=== PATIENT | female | born 1955 | race Caucasian/White ===

== ENCOUNTER 2016-02-16 13:09 | Day surgery (SDC) | payer OTHER ==
[~2016-02-16] VITALS: Ht 165.1 cm; Wt 61.8 kg
[~2016-02-16 13:09] MED LIST: ADULT LOW DOSE81 M1 PO; AMITRIPTYLINE H10 MG PO; AMLODIPINE BESY10 MG PO; ASPIRIN81 M2 PO; ATROVENT 00.5 MG/2.5 IH; AZITHROMYCIN250 MG1 PO; BACLOFEN10 MG PO; BUPROPION XL300 MG PO; CLONAZEPAM0.5 MG PO; CLONAZEPAM1 MG PO; DIVALPROEX SOD125 MG PO; DIVALPROEX SOD500 MG PO; EFFEXOR XR37.5 MG PO; FLEXERIL10 MG PO; HYDROCODON-ACE1 EAC9 PO; HYDROXYZINE PAM25 MG PO; IPRATROPIU0.2 MG/1 M IH; KLONOPIN1 MG PO; LEVO-T125 MCG PO; LEVOTHYROXINE125 MCG PO; LEVOTHYROXINE137 MCG PO; LIDOCAINE700 MG TD; LIDODERM 5% P1 PATCH TD; LISINOPRIL10 MG PO; LISINOPRIL5 MG PO; LYRICA75 MG PO; MEDROL DOSEPAK4 MG PO; MELOXICAM15 MG PO; METAXALONE800 MG PO; MOBIC15 MG PO; MOTRIN600 MG PO; NAPROSYN500 MG PO; NAPROXEN500 MG PO; NEXIUM40 MG PO; NICOTINE PATCH1 EAC2 TD; NORCO 5/3251 TABLET PO; PERCOCET 5/31 TABLET PO; PRAVASTATIN SOD40 MG PO; PRAVASTATIN SOD80 MG PO; PREDNISONE10 MG PO; PREDNISONE20 MG PO; PROVENTIL,2.5 MG/0.5 AEROSOL; QUETIAPINE FUM200 MG PO; REGLAN10 MG PO; SEROQUEL XR300 MG PO; SEROQUEL XR400 MG PO; SPIRIVA RESPIMAT4 GM IH; SYNTHROID125 MCG PO; TIZANIDINE HCL4 MG PO; TRAZODONE HCL50 MG PO; ULTRAM50 MG PO; VENLAFAXINE HC150 M1 PO; VENLAFAXINE HCL75 M3 PO; VENLAFAXINE HCL75 MG PO; VENTOLIN HFA18 GM IH; WELLBUTRIN XL300 MG PO; ZANAFLEX4 M1 PO
== END 2016-02-16 14:55 | disposition home or self-care (01) ==
LOC: PAIN 13:09 → SDC 14:00 → PAIN 14:00
PROC: 3E0S33Z Introduction of Anti-inflammatory into Epidural Space, Percutaneous Approach (ICD-10-PCS; principal; 2016-02-16)
DX: M54.16 Radiculopathy, lumbar region (principal); F41.9 Anxiety disorder, unspecified; M51.36 Other intervertebral disc degeneration, lumbar region; M43.10 Spondylolisthesis, site unspecified; F17.200 Nicotine dependence, unspecified, uncomplicated; J45.909 Unspecified asthma, uncomplicated; F31.81 Bipolar II disorder; E07.9 Disorder of thyroid, unspecified; Z79.82 Long term (current) use of aspirin; Z91.040 Latex allergy status; Z88.5 Allergy status to narcotic agent
CPT/HCPCS: J1100; J2250; J3010

== ENCOUNTER 2016-03-17 07:39 | Day surgery (SDC) | payer OTHER ==
[~2016-03-17] VITALS: Ht 165.1 cm; Wt 59.0 kg
[~2016-03-17 07:39] MED LIST changes: +CALCIUM 500 MG1 EACH PO; +DEPAKOTE250 MG PO; +ENDOCET 5-3251 EACH PO; +PRAVACHOL40 MG PO; +VENLAFAXINE HCL75 M1 PO; +ZESTRIL5 MG PO
== END 2016-03-17 11:45 | disposition home or self-care (01) ==
LOC: PAIN 07:39 → SDC 08:00 → PAIN 11:45
DX: M54.16 Radiculopathy, lumbar region (principal); F41.1 Generalized anxiety disorder; M51.36 Other intervertebral disc degeneration, lumbar region; G40.909 Epilepsy, unspecified, not intractable, without status epilepticus; F31.81 Bipolar II disorder; J45.909 Unspecified asthma, uncomplicated; M19.90 Unspecified osteoarthritis, unspecified site; E07.9 Disorder of thyroid, unspecified
CPT/HCPCS: J1100; J2250; J3010

== ENCOUNTER 2016-03-22 17:48 | Emergency (ER) | payer OTHER ==
[~2016-03-22] VITALS: Ht 167.6 cm; Wt 61.3 kg
[2016-03-22 20:56] LABS: CHLORIDE 96 mEq/L (99-109); POTASSIUM 2.7 mEq/L (3.7-5.4); SODIUM 138 mEq/L (136-147)
[2016-03-22 20:57] LABS: GLUCOSE 125 mg/dL (70-99)
[2016-03-22 20:59] LABS: ANION GAP 12 MEQ/L (2-14)
[2016-03-22 21:01] LABS: GFR ESTIMATE (CALCULATED) > 59 mL/min/
[2016-03-22 21:02] LABS: UREA NITROGEN (BUN) 24 mg/dL (9-23)
[2016-03-22 21:04] LABS: CREATINE KINASE 18 IU/L (1-294)
[2016-03-22 22:27] LABS: ADD MIUA? YES; BILIRUBIN LARGE; BLOOD NEGATIVE; COLOR AMBER ((YELLOW)); GLUCOSE (STRIP) NEGATIVE; KETONES NEGATIVE; LEUKOCYTES TRACE; NITRITE NEGATIVE; PROTEIN (STRIP) TRACE
[2016-03-22 22:29] LABS: CASTS PRESENT /LPF; HYALINE CASTS 40-50 /LPF; RED BLOOD CELLS 0-5 /HPF (0-5)
[2016-03-22 22:30] LABS: BACTERIA RARE /HPF; CRYSTALS NONE SEEN; EPITHELIAL CELLS RARE /HPF; ICTOTEST NEGATIVE; MUCUS 2+ /LPF
[2016-03-23] MEDS ORDERED: K-DUR10 MEQ PO (00:21)
[2016-03-23] MEDS ORDERED: LIDODERM 5% P1 PATCH TD (00:21)
[2016-03-23] MEDS ORDERED: MOTRIN600 MG PO (00:29)
[2016-03-23] MEDS ORDERED: VALIUM2 MG PO (00:29)
[2016-03-23] MEDS ORDERED: ULTRACET1 TABLET PO (00:29)
[2016-03-23 00:42] VITALS: BP 104/64
== END 2016-03-23 00:50 | disposition home or self-care (01) ==
LOC: EME 17:48
PROVIDERS: Physician Assistant
DX: M54.31 Sciatica, right side (principal); E87.6 Hypokalemia; E78.5 Hyperlipidemia, unspecified; K21.9 Gastro-esophageal reflux disease without esophagitis; R56.9 Unspecified convulsions; E03.9 Hypothyroidism, unspecified; Z87.442 Personal history of urinary calculi; Z87.891 Personal history of nicotine dependence
CPT/HCPCS: 72100; 72170; 80048; 81003; 82550; 93005; 99281; 99285; J3010; J3480

== ENCOUNTER 2016-06-10 01:09 | Emergency (ER) | payer OTHER ==
[~2016-06-10] VITALS: Ht 162.6 cm; Wt 62.8 kg
[~2016-06-10 01:09] MED LIST changes: +K-DUR10 MEQ PO; +ULTRACET1 TABLET PO; +VALIUM2 MG PO
[2016-06-10] MEDS ORDERED: CYMBALTA60 MG PO (02:47)
[2016-06-10 02:56] LABS: HEMATOCRIT 35.9 % (36.0-46.0); MCH 32.1 PG (29.0-34.0); MCHC 34.3 G/DL (30.0-36.0); MCV 93.7 FL (83-99); MEAN PLAT.VOLUME 9.4 uM^3 (9.5-12.4); PLATELET COUNT 135 K/uL (156-360); RBC DIS.WIDTH-SD 41.9 % (39-53); RED BLOOD COUNT 3.83 M/uL (3.80-5.20)
[2016-06-10 03:55] LABS: TROP-I INTERPRETATION NEGATIVE; TROPONIN-I 0.11 ng/mL (0.0-0.30)
[2016-06-10 04:08] LABS: ANION GAP 11 MEQ/L (2-14); CHLORIDE 104 mEq/L (99-109); GFR ESTIMATE (CALCULATED) > 59 mL/min/; GLUCOSE 107 mg/dL (70-99); POTASSIUM 3.8 mEq/L (3.7-5.4); SODIUM 139 mEq/L (136-147); UREA NITROGEN (BUN) 19 mg/dL (9-23)
[2016-06-10 05:52] LABS: SAMPLE HEMOLYSIS CHECK 0; SAMPLE ICTERIC CHECK 0; SAMPLE LIPEMIA CHECK 0
[2016-06-10 06:18] LABS: ADD MIUA? NO; BILIRUBIN NEGATIVE; BLOOD NEGATIVE; COLOR YELLOW ((YELLOW)); GLUCOSE (STRIP) NEGATIVE; KETONES NEGATIVE; LEUKOCYTES NEGATIVE; NITRITE NEGATIVE; PROTEIN (STRIP) NEGATIVE; UCUL ADDED? NO; UROBILINOGEN 0.2 MG/DL (0.2-1.0)
[2016-06-10] MEDS ORDERED: NORCO 5/3251 TABLET PO (06:53)
[2016-06-10 06:56] VITALS: BP 135/74
[2016-06-11] MEDS ORDERED: FLEXERIL10 MG PO (17:58)
[2016-06-11] MEDS ORDERED: NAPROSYN500 MG PO (17:58)
== END 2016-06-10 07:00 | disposition home or self-care (01) ==
LOC: EME 01:09
PROVIDERS: Emergency Medicine
DX: M54.31 Sciatica, right side (principal); G89.29 Other chronic pain; I10 Essential (primary) hypertension; M47.896 Other spondylosis, lumbar region; M79.605 Pain in left leg; E78.5 Hyperlipidemia, unspecified; E03.9 Hypothyroidism, unspecified; Z79.82 Long term (current) use of aspirin; Z87.891 Personal history of nicotine dependence
CPT/HCPCS: 72131; 74177; 80048; 80164; 81003; 84484; 85027; 93005; 99281; 99284; J0360; J1170; J2270

== ENCOUNTER 2016-06-11 17:39 | Emergency (ER) | payer OTHER ==
[~2016-06-11] VITALS: Ht 165.1 cm; Wt 65.1 kg
[~2016-06-11 17:39] MED LIST changes: +CYMBALTA60 MG PO
[2016-06-11] MEDS ORDERED: FLEXERIL10 MG PO (17:58)
[2016-06-11] MEDS ORDERED: NAPROSYN500 MG PO (17:58)
[2016-06-11 18:11] VITALS: BP 159/87
== END 2016-06-11 18:13 | disposition home or self-care (01) ==
LOC: EME 17:39
DX: M54.31 Sciatica, right side (principal)
CPT/HCPCS: 99281; 99283; J1100

== ENCOUNTER 2016-06-28 11:38 | Emergency (ER) | payer OTHER ==
[~2016-06-28] VITALS: Ht 162.6 cm; Wt 58.6 kg
[2016-06-28 13:09] LABS: EOSINOPHIL (%) 0.5 % (0-5); EOSINOPHIL COUNT 0.1 K/uL (0-0.3); HEMATOCRIT 32.1 % (36.0-46.0); IMMATURE GRANULOCYTE (%) 0.5 % (0.0-0.7); IMMATURE GRANULOCYTE COUNT 0.1 K/uL; INSTRUMENT ABS NEUTROPHIL CT 9.3 K/uL; LYMPHOCYTE COUNT 2.4 K/uL (1.0-2.8); MCH 32.9 PG (29.0-34.0); MCHC 35.5 G/DL (30.0-36.0); MCV 92.8 FL (83-99); MEAN PLAT.VOLUME 10.7 uM^3 (9.5-12.4); MONOCYTE (%) 10.6 % (3-12); MONOCYTE COUNT 1.4 K/uL (0-0.8); NEUTROPHIL (%) 70.1 % (45-76); NEUTROPHIL COUNT 9.3 K/uL (1.8-6.4); PLATELET COUNT 96 K/uL (156-360); RBC DIS.WIDTH-CV 12.1 % (11.8-14.6); RBC DIS.WIDTH-SD 40.7 % (39-53); RED BLOOD COUNT 3.46 M/uL (3.80-5.20); WHITE BLOOD COUNT 13.3 K/uL (4.1-10.2)
[2016-06-28 13:28] LABS: ADD MIUA? YES; BILIRUBIN MODERATE; BLOOD SMALL; COLOR AMBER ((YELLOW)); GLUCOSE (STRIP) NEGATIVE; KETONES 5; LEUKOCYTES NEGATIVE; NITRITE NEGATIVE; PROTEIN (STRIP) 30; SPECIFIC GRAVITY 1.025 (1.000-1.030)
[2016-06-28 13:30] LABS: CHLORIDE 94 mEq/L (99-109); POTASSIUM 3.2 mEq/L (3.7-5.4); SODIUM 137 mEq/L (136-147)
[2016-06-28 13:31] LABS: GLUCOSE 93 mg/dL (70-99)
[2016-06-28 13:33] LABS: ANION GAP 12 MEQ/L (2-14)
[2016-06-28 13:34] LABS: BACTERIA RARE /HPF; CALCIUM OXALATE CRYSTALS 2+ /HPF; EPITHELIAL CELLS RARE /HPF; MUCUS TRACE /LPF; RED BLOOD CELLS 0-5 /HPF (0-5); WHITE BLOOD CELLS 0-5 /HPF (0-5)
[2016-06-28 13:35] LABS: GFR ESTIMATE (CALCULATED) 53 mL/min/; SERUM ETHYL ALCOHOL < 10 mg/dL
[2016-06-28 13:35] LABS: AMPHETAMINE NEGATIVE (500 ng/mL); BENZODIAZEPINES NEGATIVE (150 ng/mL); COCAINE NEGATIVE (150 ng/mL); METHAMPHETAMINE NEGATIVE (500 ng/mL); OPIATES (MORPHINE) PRESUMPTIVE POSITIVE (100 ng/mL); PHENCYCLIDINE NEGATIVE (25 ng/mL); THC CANNABINOIDS NEGATIVE (50 ng/mL); TRICYCLIC ANTIDEPRESSANTS PRESUMPTIVE POSITIVE (300 ng/mL)
[2016-06-28 13:36] LABS: UREA NITROGEN (BUN) 46 mg/dL (9-23)
[2016-06-28 13:36] LABS: BARBITURATES NEGATIVE (200 ng/mL); INTERNAL CONTROLS VALID? YES; METHADONE NEGATIVE (200 ng/mL); OXYCODONE NEGATIVE (100 ng/mL); PROPOXYPHENE NEGATIVE (300 ng/mL)
[2016-06-28 13:37] LABS: ADD MEDTOX COMMENT Y
[2016-06-28 14:01] LABS: ICTOTEST POSITIVE
[2016-06-28 14:58] LABS: ALKALINE PHOSPHATASE 67 IU/L (3-129)
[2016-06-28 15:00] LABS: DIRECT BILIRUBIN 0.4 mg/dL (0.0-0.3)
[2016-06-28 17:41] VITALS: BP 120/81
== END 2016-06-28 17:47 | disposition home or self-care (01) ==
LOC: EME 11:38
PROVIDERS: Emergency Medicine
DX: E86.0 Dehydration (principal); E03.9 Hypothyroidism, unspecified; E78.5 Hyperlipidemia, unspecified; Z79.82 Long term (current) use of aspirin; Z87.891 Personal history of nicotine dependence
CPT/HCPCS: 80048; 80076; 81003; 84999; 85025; 99281; 99284; G0480; J7030

== ENCOUNTER 2016-06-30 17:54 | Emergency (ER) | payer OTHER ==
[~2016-06-30] VITALS: Ht 162.6 cm; Wt 59.1 kg
[2016-06-30 19:55] LABS: HEMATOCRIT 29.5 % (36.0-46.0); MCH 32.7 PG (29.0-34.0); MCHC 35.9 G/DL (30.0-36.0); MEAN PLAT.VOLUME 8.8 uM^3 (9.5-12.4); PLATELET COUNT 86 K/uL (156-360); RBC DIS.WIDTH-CV 12.1 % (11.8-14.6); RBC DIS.WIDTH-SD 39.6 % (39-53); RED BLOOD COUNT 3.24 M/uL (3.80-5.20); WHITE BLOOD COUNT 6.2 K/uL (4.1-10.2)
[2016-06-30 20:02] LABS: CHLORIDE 98 mEq/L (99-109); POTASSIUM 3.7 mEq/L (3.7-5.4); SODIUM 136 mEq/L (136-147)
[2016-06-30 20:04] LABS: GLUCOSE 97 mg/dL (70-99)
[2016-06-30 20:05] LABS: ANION GAP 10 MEQ/L (2-14)
[2016-06-30 20:08] LABS: GFR ESTIMATE (CALCULATED) > 59 mL/min/
[2016-06-30 20:09] LABS: UREA NITROGEN (BUN) 20 mg/dL (9-23)
[2016-06-30 20:17] LABS: TROP-I INTERPRETATION NEGATIVE; TROPONIN-I 0.02 ng/mL (0.0-0.30)
[2016-06-30 21:49] LABS: ALKALINE PHOSPHATASE 76 IU/L (3-129)
[2016-06-30 21:50] LABS: ADD MIUA? YES; BILIRUBIN SMALL; BLOOD SMALL; COLOR YELLOW ((YELLOW)); GLUCOSE (STRIP) NEGATIVE; KETONES 5; LEUKOCYTES TRACE; NITRITE NEGATIVE; PROTEIN (STRIP) 30; SPECIFIC GRAVITY 1.017 (1.000-1.030)
[2016-06-30 21:51] LABS: DIRECT BILIRUBIN 0.5 mg/dL (0.0-0.3)
[2016-06-30 21:52] LABS: LIPASE 85 U/L (1.0-51.0)
[2016-06-30 22:18] LABS: EPITHELIAL CELLS 1+ /HPF; RED BLOOD CELLS 0-5 /HPF (0-5); WHITE BLOOD CELLS 0-5 /HPF (0-5)
[2016-06-30 22:19] LABS: BACTERIA 2+ /HPF; MUCUS NONE SEEN /LPF
[2016-06-30] MEDS ORDERED: KEFLEX500 MG PO (22:22)
[2016-06-30 23:05] VITALS: BP 138/76
== END 2016-06-30 23:06 | disposition home or self-care (01) ==
LOC: EME 17:54
PROVIDERS: Emergency Medicine
DX: R45.1 Restlessness and agitation (principal); N39.0 Urinary tract infection, site not specified; F31.81 Bipolar II disorder; Z87.891 Personal history of nicotine dependence; Z91.040 Latex allergy status; Z87.442 Personal history of urinary calculi; G43.909 Migraine, unspecified, not intractable, without status migrainosus; E78.5 Hyperlipidemia, unspecified; Z88.1 Allergy status to other antibiotic agents; Z88.5 Allergy status to narcotic agent
CPT/HCPCS: 70450; 80048; 80076; 81003; 83690; 84484; 85027; 87086; 90839; 99281; 99284

== ENCOUNTER 2016-07-23 02:27 | Emergency (ER) | payer OTHER ==
[~2016-07-23] VITALS: Ht 154.9 cm; Wt 56.5 kg
[~2016-07-23 02:27] MED LIST changes: +KEFLEX500 MG PO
[2016-07-23 02:28] VITALS: BP 145/80
== END 2016-07-23 03:16 | disposition left against medical advice (07) ==
LOC: EME 02:27
DX: M54.5 Low back pain (principal); Z53.21 Procedure and treatment not carried out due to patient leaving prior to being seen by health care provider

== ENCOUNTER 2016-08-16 16:23 | Emergency (ER) | payer OTHER ==
[~2016-08-16] VITALS: Ht 165.1 cm; Wt 54.5 kg
[2016-08-16 17:05] VITALS: BP 131/74
[2016-08-16 17:23] LABS: HEMATOCRIT 34.2 % (36.0-46.0); MCH 31.8 PG (29.0-34.0); MCHC 34.2 G/DL (30.0-36.0); MCV 92.9 FL (83-99); MEAN PLAT.VOLUME 8.6 uM^3 (9.5-12.4); PLATELET COUNT 91 K/uL (156-360); RBC DIS.WIDTH-CV 13.3 % (11.8-14.6); RBC DIS.WIDTH-SD 45.1 % (39-53); RED BLOOD COUNT 3.68 M/uL (3.80-5.20); WHITE BLOOD COUNT 4.9 K/uL (4.1-10.2)
[2016-08-16 17:28] LABS: ADD MIUA? YES; BILIRUBIN NEGATIVE; BLOOD SMALL; COLOR YELLOW ((YELLOW)); GLUCOSE (STRIP) NEGATIVE; KETONES NEGATIVE; LEUKOCYTES NEGATIVE; NITRITE NEGATIVE; PROTEIN (STRIP) NEGATIVE
[2016-08-16 17:31] LABS: CHLORIDE 100 mEq/L (99-109); SODIUM 138 mEq/L (136-147)
[2016-08-16 17:33] LABS: GLUCOSE 99 mg/dL (70-99)
[2016-08-16 17:33] LABS: BACTERIA RARE /HPF; EPITHELIAL CELLS RARE /HPF; MUCUS TRACE /LPF; RED BLOOD CELLS 0-5 /HPF (0-5); UCUL ADDED? NO; WHITE BLOOD CELLS 0-5 /HPF (0-5)
[2016-08-16 17:34] LABS: ANION GAP 7 MEQ/L (2-14)
[2016-08-16 17:37] LABS: GFR ESTIMATE (CALCULATED) > 59 mL/min/; UREA NITROGEN (BUN) 18 mg/dL (9-23)
[2016-08-16 17:39] LABS: CREATINE KINASE 72 IU/L (1-294); TOTAL CK 72 IU/L (1-294)
[2016-08-16 17:43] LABS: TROP-I INTERPRETATION NEGATIVE; TROPONIN-I < 0.01 ng/mL (0.0-0.30)
[2016-08-16 17:45] LABS: CK-MB 3.8 ng/mL (0.0-4.9)
[2016-08-16 18:11] LABS: TOTAL BILIRUBIN 0.9 mg/dL (0.0-1.0)
[2016-08-16 18:12] LABS: ALKALINE PHOSPHATASE 112 IU/L (3-129)
[2016-08-16 18:14] LABS: DIRECT BILIRUBIN 0.4 mg/dL (0.0-0.3)
[2016-08-16 18:16] LABS: LIPASE 16 U/L (1.0-51.0)
[2016-08-16] MEDS ORDERED: NAPROSYN500 MG PO (19:35)
[2016-08-16] MEDS ORDERED: MEDROL DOSEPAK4 MG PO (19:37)
== END 2016-08-16 20:21 | disposition home or self-care (01) ==
LOC: EME 16:23
PROVIDERS: Emergency Medicine
DX: M54.30 Sciatica, unspecified side (principal); R53.1 Weakness; G89.29 Other chronic pain; Z87.891 Personal history of nicotine dependence
CPT/HCPCS: 71020; 80048; 80076; 81003; 82550; 82553; 83690; 84484; 85027; 87086; 99281; 99283; J7512

== ENCOUNTER 2016-08-31 17:29 | Inpatient (IN) | payer OTHER ==
[~2016-08-31] VITALS: Ht 162.6 cm; Wt 58.4 kg
[2016-08-31 18:39] LABS: HEMATOCRIT 34.1 % (36.0-46.0); MCH 32.5 PG (29.0-34.0); MCHC 34.9 G/DL (30.0-36.0); PLATELET COUNT 96 K/uL (156-360); RBC DIS.WIDTH-CV 13.3 % (11.8-14.6); RBC DIS.WIDTH-SD 45.3 % (39-53); RED BLOOD COUNT 3.66 M/uL (3.80-5.20); WHITE BLOOD COUNT 17.3 K/uL (4.1-10.2)
[2016-08-31 18:42] LABS: MCV 93.2 FL (83-99)
[2016-08-31 18:54] LABS: CHLORIDE 99 mEq/L (99-109); SODIUM 137 mEq/L (136-147)
[2016-08-31 18:57] LABS: ANION GAP 14 MEQ/L (2-14); GLUCOSE 139 mg/dL (70-99); POTASSIUM 4.8 mEq/L (3.7-5.4)
[2016-08-31 18:59] LABS: GFR ESTIMATE (CALCULATED) 30 mL/min/
[2016-08-31 19:36] LABS: SERUM ETHYL ALCOHOL < 10 mg/dL
[2016-08-31 19:38] LABS: UREA NITROGEN (BUN) 38 mg/dL (9-23)
[2016-08-31 19:39] LABS: SALICYLATE < 5.0 MG/DL (15-30)
[2016-08-31 19:46] LABS: TROP-I INTERPRETATION NEGATIVE; TROPONIN-I < 0.01 ng/mL (0.0-0.30)
[2016-08-31 20:00] LABS: CREATINE KINASE 2860 IU/L (1-294)
[2016-08-31 23:10] LABS: BASE EXCESS 5.4 mEq/L (-3 to +3); BICARBONATE 28.9 mEq/L (22-26); CARBOXY HGB 2.6 % (0-5); METHEMOGLOBIN 1.3 % (0-1.5); PCO2 37 mm Hg (35-45); PO2 62 mm Hg (80-100)
[2016-08-31 23:11] LABS: COMMENTS - BLOOD GASES C+; MODE ROOM AIR; SITE LB
[2016-08-31] MEDS ORDERED: ADULT LOW DOSE81 M1 PO (23:35)
[2016-08-31] MEDS ORDERED: SYNTHROID150 MCG PO (23:35)
[2016-08-31] MEDS ORDERED: NAPROXEN500 MG PO (23:36)
[2016-08-31] MEDS ORDERED: VENLAFAXINE HCL75 M3 PO (23:36)
[2016-08-31] MEDS ORDERED: TRAZODONE HCL50 MG PO (23:36)
[2016-08-31] MEDS ORDERED: HYDROXYZINE HCL25 MG PO (23:37)
[2016-08-31] MEDS ORDERED: DILAUDID4 MG PO (23:37)
[2016-08-31] MEDS ORDERED: GABAPENTIN600 MG PO (23:37)
[2016-09-01 06:00] LABS: HEMATOCRIT 30.2 % (36.0-46.0); MCH 32.1 PG (29.0-34.0); MCHC 33.8 G/DL (30.0-36.0); NRBC (%) 0.1 /100 WBC (0-0); PLATELET COUNT 82 K/uL (156-360); RBC DIS.WIDTH-CV 13.4 % (11.8-14.6); RBC DIS.WIDTH-SD 46.5 % (39-53); RED BLOOD COUNT 3.18 M/uL (3.80-5.20); WHITE BLOOD COUNT 13.9 K/uL (4.1-10.2)
[2016-09-01 06:11] LABS: CHLORIDE 102 mEq/L (99-109); POTASSIUM 4.1 mEq/L (3.7-5.4); SODIUM 139 mEq/L (136-147)
[2016-09-01 06:14] LABS: GLUCOSE 81 mg/dL (70-99)
[2016-09-01 06:15] LABS: ANION GAP 8 MEQ/L (2-14); TOTAL BILIRUBIN 0.5 mg/dL (0.0-1.0)
[2016-09-01 06:17] LABS: ADD MIUA? YES; BILIRUBIN MODERATE; BLOOD MODERATE; COLOR AMBER ((YELLOW)); GLUCOSE (STRIP) NEGATIVE; KETONES NEGATIVE; LEUKOCYTES NEGATIVE; NITRITE NEGATIVE; PROTEIN (STRIP) 30
[2016-09-01 06:17] LABS: ALKALINE PHOSPHATASE 92 IU/L (3-129); GFR ESTIMATE (CALCULATED) 44 mL/min/
[2016-09-01 06:18] LABS: UREA NITROGEN (BUN) 43 mg/dL (9-23)
[2016-09-01 06:23] LABS: BACTERIA NONE SEEN /HPF; EPITHELIAL CELLS NONE SEEN /HPF; MUCUS TRACE /LPF; RED BLOOD CELLS 0-5 /HPF (0-5); UCUL ADDED? NO; WHITE BLOOD CELLS 0-5 /HPF (0-5)
[2016-09-01 06:30] LABS: ADD MEDTOX COMMENT Y; AMPHETAMINE NEGATIVE (500 ng/mL); BARBITURATES NEGATIVE (200 ng/mL); BENZODIAZEPINES NEGATIVE (150 ng/mL); COCAINE NEGATIVE (150 ng/mL); INTERNAL CONTROLS VALID? YES; METHADONE NEGATIVE (200 ng/mL); METHAMPHETAMINE NEGATIVE (500 ng/mL); OPIATES (MORPHINE) PRESUMPTIVE POSITIVE (100 ng/mL); OXYCODONE NEGATIVE (100 ng/mL); PHENCYCLIDINE NEGATIVE (25 ng/mL); PROPOXYPHENE NEGATIVE (300 ng/mL); THC CANNABINOIDS NEGATIVE (50 ng/mL); TRICYCLIC ANTIDEPRESSANTS NEGATIVE (300 ng/mL)
[2016-09-01 07:53] LABS: ICTOTEST NEGATIVE
[2016-09-01 15:53] VITALS: BP 160/82
[2016-09-01 20:15] VITALS: BP 140/90
[2016-09-01 23:11] VITALS: BP 140/80
[2016-09-02 06:35] VITALS: BP 162/72
[2016-09-02 06:37] LABS: EOSINOPHIL (%) 0 % (0-5); HEMATOCRIT 26.4 % (36.0-46.0); IMMATURE GRANULOCYTE (%) 1.4 % (0.0-0.7); IMMATURE GRANULOCYTE COUNT 0.2 K/uL; INSTRUMENT ABS NEUTROPHIL CT 7.8 K/uL; LYMPHOCYTE COUNT 1.4 K/uL (1.0-2.8); MCH 33.2 PG (29.0-34.0); MCV 92.3 FL (83-99); MONOCYTE (%) 12.5 % (3-12); MONOCYTE COUNT 1.3 K/uL (0-0.8); NEUTROPHIL (%) 73.1 % (45-76); NEUTROPHIL COUNT 7.8 K/uL (1.8-6.4); PLATELET COUNT 85 K/uL (156-360); RBC DIS.WIDTH-CV 13.3 % (11.8-14.6); RBC DIS.WIDTH-SD 44.6 % (39-53); RED BLOOD COUNT 2.86 M/uL (3.80-5.20); WHITE BLOOD COUNT 10.7 K/uL (4.1-10.2)
[2016-09-02 07:19] LABS: ANION GAP 8 MEQ/L (2-14); CHLORIDE 103 MEQ/L (99-109); GLUCOSE 76 mg/dL (70-99); POTASSIUM 3.5 MEQ/L (3.7-5.4); SAMPLE HEMOLYSIS CHECK 0; SAMPLE ICTERIC CHECK 0; SAMPLE LIPEMIA CHECK 0; SODIUM 139 MEQ/L (136-147); UREA NITROGEN (BUN) 23 mg/dL (9-23)
[2016-09-02 07:23] LABS: CREATINE KINASE 1182 IU/L (1-294); GFR ESTIMATE (CALCULATED) > 59 mL/min/
[2016-09-02 15:40] VITALS: BP 166/74
[2016-09-02 20:49] VITALS: BP 180/84
[2016-09-03 04:52] VITALS: BP 172/75
[2016-09-03 07:57] VITALS: BP 162/70
[2016-09-03 12:03] VITALS: BP 162/70
[2016-09-04] VITALS (7 sets, daily range): BP systolic 152–188; BP diastolic 62–83
[2016-09-04 06:42] LABS: ANION GAP 11 MEQ/L (2-14); CHLORIDE 98 MEQ/L (99-109); CREATINE KINASE 245 IU/L (1-294); GFR ESTIMATE (CALCULATED) > 59 mL/min/; GLUCOSE 74 mg/dL (70-99); SAMPLE HEMOLYSIS CHECK 0; SAMPLE ICTERIC CHECK 0; SAMPLE LIPEMIA CHECK 0; SODIUM 134 MEQ/L (136-147); UREA NITROGEN (BUN) 8 mg/dL (9-23)
[2016-09-04 06:43] LABS: POTASSIUM 2.7 MEQ/L (3.7-5.4)
[2016-09-04 06:48] LABS: EOSINOPHIL (%) 0.8 % (0-5); EOSINOPHIL COUNT 0.1 K/uL (0-0.3); HEMATOCRIT 26.3 % (36.0-46.0); IMMATURE GRANULOCYTE COUNT 0.2 K/uL; INSTRUMENT ABS NEUTROPHIL CT 5.2 K/uL; LYMPHOCYTE COUNT 2.2 K/uL (1.0-2.8); MCH 32.1 PG (29.0-34.0); MCHC 36.1 G/DL (30.0-36.0); MCV 88.9 FL (83-99); MEAN PLAT.VOLUME 8.6 uM^3 (9.5-12.4); MONOCYTE (%) 10.7 % (3-12); MONOCYTE COUNT 0.9 K/uL (0-0.8); NEUTROPHIL (%) 60.6 % (45-76); NEUTROPHIL COUNT 5.2 K/uL (1.8-6.4); PLATELET COUNT 98 K/uL (156-360); RBC DIS.WIDTH-CV 13.3 % (11.8-14.6); RBC DIS.WIDTH-SD 42.5 % (39-53); RED BLOOD COUNT 2.96 M/uL (3.80-5.20); WHITE BLOOD COUNT 8.5 K/uL (4.1-10.2)
[2016-09-05] VITALS: BP 148/70
[2016-09-05 11:36] LABS: ANION GAP 12 MEQ/L (2-14); CHLORIDE 103 MEQ/L (99-109); GFR ESTIMATE (CALCULATED) > 59 mL/min/; GLUCOSE 78 mg/dL (70-99); SAMPLE HEMOLYSIS CHECK 0; SAMPLE ICTERIC CHECK 0; SAMPLE LIPEMIA CHECK 0; SODIUM 138 MEQ/L (136-147); UREA NITROGEN (BUN) 7 mg/dL (9-23)
[2016-09-05 11:37] LABS: POTASSIUM 3.5 MEQ/L (3.7-5.4)
[2016-09-05 16:15] VITALS: BP 192/87
[2016-09-05 18:51] VITALS: BP 181/87
[2016-09-05 19:33] VITALS: BP 160/90
[2016-09-05 23:18] VITALS: BP 183/90
[2016-09-06 07:50] VITALS: BP 180/99
[2016-09-06] MEDS ORDERED: LOVENOX40 MG/0.4 SC (10:17)
[2016-09-06] MEDS ORDERED: DUONEB 2.5-0.5 M3 ML AEROSOL (10:17)
[2016-09-06] MEDS ORDERED: AMLODIPINE BESY10 MG PO (10:17)
[2016-09-06] MEDS ORDERED: TYLENOL REGULA325 MG PO (10:18)
[2016-09-06] MEDS ORDERED: VALSARTAN160 MG PO (10:18)
[2016-09-06] MEDS ORDERED: HALDOL2 MG PO (10:19)
[2016-09-06] MEDS ORDERED: CYMBALTA60 MG PO (10:19)
[2016-09-06] MEDS ORDERED: DOCUSATE SODIU100 MG PO (10:20)
[2016-09-06] MEDS ORDERED: K-DUR20 MEQ PO (10:20)
[2016-09-06] MEDS ORDERED: TRAZODONE HCL50 MG PO (10:20)
[2016-09-06 10:35] VITALS: BP 138/88
[2016-09-06 16:00] VITALS: BP 182/82
[2016-09-06 17:41] VITALS: BP 154/88
== END 2016-09-06 17:55 | DRG 917 ==
LOC: EME 17:29 → 5EAST 21:53 → EDOF 21:53 → 5EAST 09-01 15:19
PROVIDERS: Emergency Medicine; Family Medicine Sports Medicine
DX: T40.601A Poisoning by unspecified narcotics, accidental (unintentional), initial encounter (principal); G92 Toxic encephalopathy; N17.9 Acute kidney failure, unspecified; M62.82 Rhabdomyolysis; R56.9 Unspecified convulsions; F31.81 Bipolar II disorder; F05 Delirium due to known physiological condition; F03.90 Unspecified dementia, unspecified severity, without behavioral disturbance, psychotic disturbance, mood disturbance, and anxiety; F11.10 Opioid abuse, uncomplicated; Y92.009 Unspecified place in unspecified non-institutional (private) residence as the place of occurrence of the external cause; E03.9 Hypothyroidism, unspecified; E78.5 Hyperlipidemia, unspecified; E86.0 Dehydration; F41.9 Anxiety disorder, unspecified; G83.9 Paralytic syndrome, unspecified; G89.29 Other chronic pain; I10 Essential (primary) hypertension; J44.9 Chronic obstructive pulmonary disease, unspecified; K21.9 Gastro-esophageal reflux disease without esophagitis; M19.90 Unspecified osteoarthritis, unspecified site; M54.41 Lumbago with sciatica, right side; N39.0 Urinary tract infection, site not specified; S00.83XA Contusion of other part of head, initial encounter; W19.XXXA Unspecified fall, initial encounter; Z87.891 Personal history of nicotine dependence; Z79.82 Long term (current) use of aspirin; Z79.899 Other long term (current) drug therapy; Z87.442 Personal history of urinary calculi; Z98.1 Arthrodesis status; Z76.5 Malingerer [conscious simulation]; M25.559 Pain in unspecified hip; R44.3 Hallucinations, unspecified; R45.1 Restlessness and agitation; S40.022A Contusion of left upper arm, initial encounter; S20.212A Contusion of left front wall of thorax, initial encounter; S14.3XXA Injury of brachial plexus, initial encounter
CPT/HCPCS: 36415; 36600; 70450; 70551; 71010; 72125; 73000; 74230; 80048; 80053; 80061; 81003; 82550; 82550 91; 82803; 83605; 84439; 84443; 84484; 84999; 85025; 85027; 92526 GN; 92611 GN; 93005; 94640; 94640 76; 99202; 99281; 99285; G0480; J0696; J1630; J1650; J2310; J3480; J7050; J7120

== ENCOUNTER 2016-10-11 18:34 | Emergency (ER) | payer OTHER ==
[~2016-10-11] VITALS: Ht 162.6 cm; Wt 56.1 kg
[~2016-10-11 18:34] MED LIST changes: +DILAUDID4 MG PO; +DOCUSATE SODIU100 MG PO; +DUONEB 2.5-0.5 M3 ML AEROSOL; +GABAPENTIN600 MG PO; +HALDOL2 MG PO; +HYDROXYZINE HCL25 MG PO; +K-DUR20 MEQ PO; +LOVENOX40 MG/0.4 SC; +SYNTHROID150 MCG PO; +TYLENOL REGULA325 MG PO; +VALSARTAN160 MG PO
[2016-10-11] MEDS ORDERED: MEDROL DOSEPAK4 MG PO (19:12)
[2016-10-11] MEDS ORDERED: ROBAXIN750 MG PO (19:12)
[2016-10-11 19:22] VITALS: BP 127/69
== END 2016-10-11 19:22 | disposition home or self-care (01) ==
LOC: EME 18:34
DX: M54.40 Lumbago with sciatica, unspecified side (principal); K21.9 Gastro-esophageal reflux disease without esophagitis; E78.5 Hyperlipidemia, unspecified; R56.9 Unspecified convulsions; E03.9 Hypothyroidism, unspecified; Z87.442 Personal history of urinary calculi; Z87.891 Personal history of nicotine dependence
CPT/HCPCS: 99281; 99283; J7512

== ENCOUNTER 2017-03-13 11:53 | Day surgery (SDC) | payer OTHER ==
[~2017-03-13] VITALS: Ht 162.6 cm; Wt 68.0 kg
[~2017-03-13 11:53] MED LIST changes: +COZAAR100 MG PO; +KLOR-CON M2020 MEQ PO; +NEURONTIN300 MG PO; +NORVASC10 MG PO; +ROBAXIN750 MG PO; +WOMEN'S DAILY1 EAC2 PO; +ZANAFLEX2 M1 PO; +ZANTAC150 MG PO; +ZYRTEC10 M3 PO
== END 2017-03-13 13:57 | disposition home or self-care (01) ==
LOC: PAIN 11:53
DX: M47.26 Other spondylosis with radiculopathy, lumbar region (principal); M51.16 Intervertebral disc disorders with radiculopathy, lumbar region; M96.1 Postlaminectomy syndrome, not elsewhere classified; M48.061 Spinal stenosis, lumbar region without neurogenic claudication; F41.9 Anxiety disorder, unspecified; K21.9 Gastro-esophageal reflux disease without esophagitis; I10 Essential (primary) hypertension; E03.9 Hypothyroidism, unspecified; G40.909 Epilepsy, unspecified, not intractable, without status epilepticus; Z87.891 Personal history of nicotine dependence
CPT/HCPCS: J1100; J2250; J3010

== ENCOUNTER 2017-04-17 11:12 | Day surgery (SDC) | payer OTHER ==
[~2017-04-17] VITALS: Ht 165.1 cm; Wt 67.1 kg
[~2017-04-17 11:12] MED LIST changes: +BUTRANS1 EACH TD; +DEPAKOTE500 MG PO
== END 2017-04-17 12:57 | disposition home or self-care (01) ==
LOC: PAIN 11:12
DX: M47.816 Spondylosis without myelopathy or radiculopathy, lumbar region (principal); M51.16 Intervertebral disc disorders with radiculopathy, lumbar region; M96.1 Postlaminectomy syndrome, not elsewhere classified; I10 Essential (primary) hypertension; E03.9 Hypothyroidism, unspecified; Z87.891 Personal history of nicotine dependence; K21.9 Gastro-esophageal reflux disease without esophagitis
CPT/HCPCS: J1030; J2250; J3010; S0020

== ENCOUNTER 2017-04-24 12:59 | Day surgery (SDC) | payer OTHER ==
[~2017-04-24] VITALS: Ht 165.1 cm; Wt 67.1 kg
== END 2017-04-24 15:13 | disposition home or self-care (01) ==
LOC: PAIN 12:59 → SDC 13:45 → PAIN 13:45
DX: M47.816 Spondylosis without myelopathy or radiculopathy, lumbar region (principal); M43.10 Spondylolisthesis, site unspecified; M51.36 Other intervertebral disc degeneration, lumbar region; M96.1 Postlaminectomy syndrome, not elsewhere classified; M54.16 Radiculopathy, lumbar region; Z87.891 Personal history of nicotine dependence; M19.90 Unspecified osteoarthritis, unspecified site; J43.9 Emphysema, unspecified; F31.81 Bipolar II disorder; K21.9 Gastro-esophageal reflux disease without esophagitis; Z91.11 Patient's noncompliance with dietary regimen; G40.909 Epilepsy, unspecified, not intractable, without status epilepticus; E07.9 Disorder of thyroid, unspecified; Z91.040 Latex allergy status
CPT/HCPCS: J1030; J2250; J3010; S0020

== ENCOUNTER 2017-08-07 12:05 | Emergency (ER) | payer OTHER ==
[~2017-08-07] VITALS: Ht 160 cm; Wt 70.6 kg
[2017-08-07 12:58] LABS: BASOPHIL (%) 0.6 % (0-1); EOSINOPHIL (%) 3.6 % (0-5); EOSINOPHIL COUNT 0.2 K/uL (0-0.3); HEMATOCRIT 35.2 % (36.0-46.0); HEMOGLOBIN 12.3 G/DL (11.9-15.5); IMMATURE GRANULOCYTE (%) 0.4 % (0.0-0.7); LYMPHOCYTE (%) 49.8 % (15-42); LYMPHOCYTE COUNT 2.3 K/uL (1.0-2.8); MCH 32.5 PG (29.0-34.0); MCHC 34.9 G/DL (30.0-36.0); MCV 93.1 FL (83-99); MONOCYTE (%) 10.9 % (3-12); MONOCYTE COUNT 0.5 K/uL (0-0.8); NEUTROPHIL (%) 34.7 % (45-76); NEUTROPHIL COUNT 1.6 K/uL (1.8-6.4); NRBC (%) 0.4 /100 WBC (0-0); PLATELET COUNT 126 K/uL (156-360); RBC DIS.WIDTH-CV 12.9 % (11.8-14.6); RBC DIS.WIDTH-SD 44.1 % (39-53); RED BLOOD COUNT 3.78 M/uL (3.80-5.20); WHITE BLOOD COUNT 4.7 K/uL (4.1-10.2)
[2017-08-07 13:04] LABS: CHLORIDE 105 mEq/L (99-109); POTASSIUM 3.7 mEq/L (3.7-5.4); SODIUM 139 mEq/L (136-147)
[2017-08-07 13:06] LABS: GLUCOSE 84 mg/dL (70-99)
[2017-08-07 13:10] LABS: CREATININE 0.8 mg/dL (0.6-1.3); GFR ESTIMATE (CALCULATED) > 59 mL/min/
[2017-08-07 13:11] LABS: UREA NITROGEN (BUN) 17 mg/dL (9-23)
[2017-08-07 14:47] VITALS: BP 125/84
== END 2017-08-07 14:49 | disposition home or self-care (01) ==
LOC: EME 12:05
PROVIDERS: Emergency Medicine
DX: S20.229A Contusion of unspecified back wall of thorax, initial encounter (principal); W01.198A Fall on same level from slipping, tripping and stumbling with subsequent striking against other object, initial encounter; R56.9 Unspecified convulsions; E78.5 Hyperlipidemia, unspecified; E03.9 Hypothyroidism, unspecified; F31.9 Bipolar disorder, unspecified; F41.9 Anxiety disorder, unspecified; Z87.442 Personal history of urinary calculi; Z87.891 Personal history of nicotine dependence; Z91.040 Latex allergy status; Z88.5 Allergy status to narcotic agent; Z88.1 Allergy status to other antibiotic agents; Z88.8 Allergy status to other drugs, medicaments and biological substances
CPT/HCPCS: 70450; 72131; 80048; 85025; 93005; 99281; 99284